=== PATIENT | male | born 1965 | race African-American/Black ===

== ENCOUNTER 2024-05-04 08:38 | Observation (INO) | payer MEDICAID, SELFPAY ==
--- NOTE | 2024-05-04 | CT_ITS ---
The [address] [address] Patient Name: IKE KILGORE MRN: [id number] date: 1965 Sex: M Assigned Patient Location: ED.MAIN Current Patient Location: Accession/Order Number: [id number] Exam Date: 05/04/2024 10:20 Report Date: 05/04/2024 11:43 At the request of: JAIME VARGAS Procedure: CT head/brain wo con EXAM: CT head/brain w con, CT head/brain wo con HISTORY: Headache, right eye pain COMPARISON: None. TECHNIQUE: Axial postcontrast CT imaging of the head was performed with coronal and sagittal reformats. FINDINGS: Calvarium/skull base: No evidence of acute fracture or destructive lesion. There is grossly unremarkable appearance of the partially visualized orbits. Paranasal sinuses: Subtotal ossification of the partially visualized right ethmoid air cells. Brain: No acute intracranial hemorrhage. No acute large vascular territory infarct. 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 No abnormal intracranial enhancement. No mass lesion or mass effect. No hydrocephalus. CT/CT head/brain wo con IMPRESSION: 1. No acute intracranial process. 2. Right ethmoid sinus disease. 3. Please note the orbits are incompletely evaluated on the current study. No overt abnormality involving the visualized portion of the orbits. 4. 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 Electronically authenticated by: RUTHIE CELESTIN Date: 05/04/2024 11:43
[2024-05-04 08:47] VITALS: BP 156/89; PULSE 76; TEMP 36.6; O2SAT 99; BMI 22.9
[2024-05-04 09:16] LABS: Basophils Absolute Auto 0.1 10^3/uL (0.0-0.1); Basophils Percent Auto 0.4 % (0.2-2.0); Eosinophils Absolute Auto 0.1 10^3/uL (0.0-0.7); Eosinophils Percent Auto 0.4 % (0.9-7.0); Hematocrit 47.6 % (42.0-54.0); Hemoglobin 15.8 g/dL (14.0-18.0); Immature Granulocytes Abs Auto 0.05 10^3/uL (0.00-0.03); Immature Granulocytes Pct Auto 0.4 % (0.0-0.5); Lymphocytes Absolute Auto 2.3 10^3/uL (1.2-3.8); Lymphocytes Percent Auto 16.5 % (20.5-60.0); Mean Corpuscular HGB Conc 33.2 g/dL (29.9-35.2); Mean Corpuscular Hemoglobin 29.3 pg (25.9-34.0); Mean Corpuscular Volume 88.1 fL (80.0-94.0); Mean Platelet Volume 9.7 fL (9.5-13.5); Monocytes Absolute Auto 0.9 10^3/uL (0.3-0.8); Monocytes Percent Auto 6.4 % (1.7-12.0); Neutrophils Absolute Auto 10.5 10^3/uL (1.4-6.5); Neutrophils Percent Auto 75.9 % (43.0-75.0); Platelet Count 381 10^3/uL (150-450); Red Cell Distribution Width 13.2 % (11.0-15.0); White Blood Count 13.9 10^3/uL (4.0-11.0)
[2024-05-04 09:17] LABS: Bilirubin Urine NEGATIVE (NEGATIVE); Blood Urine NEGATIVE (NEGATIVE); Clarity Urine CLEAR (CLEAR); Color Urine YELLOW (YELLOW); Glucose Urine UA >=1000 mg/dL (NEGATIVE); Ketones Urine TRACE mg/dL (NEGATIVE); Leukocyte Esterase Urine NEGATIVE (NEGATIVE); Nitrite Urine NEGATIVE (NEGATIVE); Protein Urine 100 mg/dL (NEG/TRACE); Specific Gravity Urine 1.025 (1.005-1.025); Urobilinogen Urine 0.2 EU/dL (0.2-1.0)
[2024-05-04 09:19] LABS: Urine Microscopic Indicated YES
[2024-05-04 09:25] LABS: Bacteria Urine TRACE #/HPF (NONE SEEN); Cast Seen? NONE SEEN #/LPF (NONE SEEN); Crystals Seen? None Seen #/HPF (None Seen); Mucus Urine SMALL (NONE SEEN); RBC Urine 0-2 #/HPF (0-2); Squamous Epithelial Cell Urine NONE SEEN #/LPF (NONE/RARE); Urine Culture Indicated NO; WBC Urine NONE SEEN #/HPF (NONE SEEN)
[2024-05-04 09:29] LABS: Alanine Aminotransferase 19 U/L (16-63); Albumin Globulin Ratio 0.7; Albumin Level 3.3 g/dL (3.4-5.0); Alkaline Phosphatase 122 U/L (46-116); Anion Gap 10.7; Aspartate Amino Transferase 7 U/L (15-37); BUN Creatinine Ratio 9.6; Bilirubin Total 0.2 mg/dL (0.2-1.0); Calcium 9.9 mg/dL (8.5-10.1); Carbon Dioxide 32.5 mmol/L (21.0-32.0); Chloride 92 mmol/L (98-107); Estimated GFR (African America >60 (>=60); Estimated GFR (Non-African Ame >60 (>=60); Globulin 4.5 g/dL; Glucose 81 mg/dL (74-106); Potassium 3.2 mmol/L (3.5-5.1); Sodium 132 mmol/L (136-145); Total Protein 7.8 g/dL (6.4-8.2)
--- NOTE | 2024-05-04 09:51 | XR_ITS ---
The [address] [address] Patient Name: IKE KILGORE MRN: [id number] date: 1965 Sex: M Assigned Patient Location: ED.MAIN Current Patient Location: ER Accession/Order Number: [id number] Exam Date: 05/04/2024 10:20 Report Date: 05/04/2024 11:17 At the request of: JAIME VARGAS Procedure: XR lumbar spine 2-3V EXAM: XR lumbar spine 2-3V HISTORY: Back pain. COMPARISON: None. TECHNIQUE: AP and lateral views of the lumbar spine performed. FINDINGS: The bony alignment and mineralization are normal. There is no fracture. The vertebral body heights are normal. There are mild discogenic degenerative changes at L3-4 with mild narrowing of the disc space, endplate sclerosis and endplate spurs. Small endplate spurs at L4-5 with preservation of the disc space height. The facet joints are unremarkable. The pedicles are intact. The sacrum and bilateral sacral joints are unremarkable. There is contrast within both renal collecting systems and the urinary bladder secondary to the antecedent CT examination of the head with intravenous contrast. XR/XR lumbar spine 2-3V IMPRESSION: There is no acute process. Mild discogenic degenerative changes at L3-4 and L4-5. Electronically authenticated by: ALEXIS SORENSON Date: 05/04/2024 11:17
--- NOTE | 2024-05-04 09:51 | CT_ITS ---
The [address] [address] Patient Name: IKE KILGORE MRN: [id number] date: 1965 Sex: M Assigned Patient Location: ED.MAIN Current Patient Location: Accession/Order Number: [id number] Exam Date: 05/04/2024 10:20 Report Date: 05/04/2024 11:43 At the request of: JAIME VARGAS Procedure: CT head/brain w con EXAM: CT head/brain w con, CT head/brain wo con HISTORY: Headache, right eye pain COMPARISON: None. TECHNIQUE: Axial postcontrast CT imaging of the head was performed with coronal and sagittal reformats. FINDINGS: Calvarium/skull base: No evidence of acute fracture or destructive lesion. There is grossly unremarkable appearance of the partially visualized orbits. Paranasal sinuses: Subtotal ossification of the partially visualized right ethmoid air cells. Brain: No acute intracranial hemorrhage. No acute large vascular territory infarct. 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 No abnormal intracranial enhancement. No mass lesion or mass effect. No hydrocephalus. CT/CT head/brain w con IMPRESSION: 1. No acute intracranial process. 2. Right ethmoid sinus disease. 3. Please note the orbits are incompletely evaluated on the current study. No overt abnormality involving the visualized portion of the orbits. 4. 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 Electronically authenticated by: RUTHIE CELESTIN Date: 05/04/2024 11:43
[2024-05-04] MEDS: DEXTROSE 5%-0.9% NACL 1,000 ML 1,000 ML 250 ML IV (09:52)
[2024-05-04 10:08] LABS: Glucometer 106 mg/dL (74-106)
[2024-05-04 10:08] LABS: C Reactive Protein 2.02 mg/dL (<=0.50)
[2024-05-04 10:10] LABS: Erythrocyte Sedimentation Rate 120 mm/hr (<=20)
[2024-05-04 10:58] LABS: Glucometer 134 mg/dL (74-106)
[2024-05-04 12:17] LABS: Glucometer 289 mg/dL (74-106)
[2024-05-04 12:18] VITALS: BP 144/75; PULSE 76; O2SAT 100
[2024-05-04 13:15] LABS: Lactate/Lactic Acid 3.1 mmol/L (0.4-2.0)
--- NOTE | 2024-05-04 13:18 | ED_ITS ---
HPI HPI - General Adult General Chief complaint: Back Pain/Injury Stated complaint: GENERAL WEAKNESS Time Seen by Provider: 05/04/24 09:51 Source: patient Mode of arrival: Wheelchair Limitations: no limitations History of Present Illness HPI narrative: This patient comes to us from the [facility]. He has been there several days for alcohol and crack cocaine use. His complaint today is pain in the right orbital area and low back pain. He denies any history of trauma falls or injury. He has not had any drugs or alcohol for a number of days. He is not known to be running a fever that he . He is here by himself. He does not have a skin infections that he is aware of. He denies any abdominal pain nausea or vomiting. He denies any chest pain or shortness of breath. He says he has had a lot of nasal stuffiness and congestion. He has not had any diarrhea or urinary symptoms such as frequency urgency dysuria or hematuria. Related Data Allergies Allergy/AdvReac Type Severity Reaction Status Date / Time No Known Drug Allergies Allergy Verified 05/04/24 08:47 Opioid HPI Opioid Management Most Recent Opioid Data: Last Pain Scale 8 05/04/24 09:11 PFSH PFSH Social History Little interest or pleasure in doing things: not at all Feeling down, depressed, or hopeless: not at all Exam Narrative Exam Narrative: Patient is awake alert afebrile follows all simple and complex commands but is somewhat of a limited historian. He did not mention to me anything about having a previous stroke, but as noted below his CT scan shows an old stroke today and then he subsequently remembered that he was told he had a stroke at [facility] a number of years ago. On HEENT examination the he has no proptosis. There is no conjunctivitis. Extraocular muscles are normal. There is no nystagmus. Conjunctiva is moist and pink. Pupillary light response is normal pupils are 5 mm and reactive bilaterally. The globes are not tender to palpation there is no increase in intracranial pressure. There is no proptosis as a noted. There is no facial asymmetry cranial nerves are normal. Oral cavity and dentition shows extremely poor repair and he does have some dental tenderness on the upper mid maxillary dental area. His airway is widely patent uvula is normal there is no swelling of the floor the mouth. Neck is soft and supple with no meningeal irritation no phono or photosensitivity cognition is normal. There is no nuchal rigidity. His lungs are clear with no wheeze rales or rhonchi heart sounds are normal with no murmur. Abdominal examination is not distended there is no guarding rebound or rigidity. Extremities showed no evidence of soft tissue or skin infection. His joints are not red hot warm swollen or tender. He has no cellulitis of the extremities. Constitutional Vital Signs, click to edit/add: Last Vital Signs Temp 97.9 F 05/04/24 08:47 Pulse 76 05/04/24 12:18 Resp 18 05/04/24 12:18 BP 144/75 H 05/04/24 12:18 Pulse Ox 100 05/04/24 12:18 O2 Del Method Room Air 05/04/24 08:47 Course Vital Signs Vital signs: Vital Signs Temperature 97.9 F 05/04/24 08:47 Pulse Rate 76 05/04/24 08:47 Respiratory Rate 18 05/04/24 08:47 Blood Pressure 156/89 H 05/04/24 08:47 Pulse Oximetry 99 05/04/24 08:47 Oxygen Delivery Method Room Air 05/04/24 08:47 Temperature 97.9 F 05/04/24 08:47 Pulse Rate 76 05/04/24 12:18 Respiratory Rate 18 05/04/24 12:18 Blood Pressure 144/75 H 05/04/24 12:18 Pulse Oximetry 100 05/04/24 12:18 Oxygen Delivery Method Room Air 05/04/24 08:47 Medical Decision Making [facility] Narrative Medical decision making narrative: This patient denies any previous recent or past history of intravenous drug abuse states that he only uses alcohol and snorts crack cocaine. He has substantial elevation of sedimentation rate and CRP. He has pain in the right orbital area. CT scan without and with contrast shows ethmoid sinus problem. He has an old stroke on the right side with no acute findings. His white blood cell count is modestly elevated as well. We do not have a clear-cut obvious sign of infection but the ethmoid sinuses and dentition are likely. Blood cultures have been done and the sedimentation rate was discussed as above. His lactate levels are also elevated. We will start him on Rocephin. I will speak to the hospitalist about admitting him for pending blood cultures. Lab Data Labs: Lab Results 05/04/24 05/04/24 05/04/24 Range/Units 09:02 09:05 10:05 WBC 13.9 H (4.0-11.0) 10^3/uL RBC 5.40 (4.70-6.10) 10^6/uL Hgb 15.8 (14.0-18.0) g/dL Hct 47.6 (42.0-54.0) % MCV 88.1 (80.0-94.0) fL MCH 29.3 (25.9-34.0) pg MCHC 33.2 (29.9-35.2) g/dL RDW 13.2 (11.0-15.0) % Plt Count 381 (150-450) 10^3/uL MPV 9.7 (9.5-13.5) fL Neut % (Auto) 75.9 H (43.0-75.0) % Lymph % (Auto) 16.5 L (20.5-60.0) % Wilkin % (Auto) 6.4 (1.7-12.0) % Eos % (Auto) 0.4 L (0.9-7.0) % Baso % (Auto) 0.4 (0.2-2.0) % Neut # (Auto) 10.5 H (1.4-6.5) 10^3/uL Lymph # (Auto) 2.3 (1.2-3.8) 10^3/uL Wilkin # (Auto) 0.9 H (0.3-0.8) 10^3/uL Eos # (Auto) 0.1 (0.0-0.7) 10^3/uL Baso # (Auto) 0.1 (0.0-0.1) 10^3/uL Abs Immat Gran (auto) 0.05 H (0.00-0.03) 10^3/uL Imm/Tot Granulo (auto) 0.4 (0.0-0.5) % ESR 120 H (<=20) mm/hr Sodium 132 L (136-145) mmol/L Potassium 3.2 L (3.5-5.1) mmol/L Chloride 92 L (98-107) mmol/L Carbon Dioxide 32.5 H (21.0-32.0) mmol/L Anion Gap 10.7 BUN 10.0 (7.0-18.0) mg/dL Creatinine 1.04 (0.70-1.30) mg/dL Est GFR ( Amer) >60 (>=60) Est GFR (Non-Af Amer) >60 (>=60) BUN/Creatinine Ratio 9.6 Glucose 81 (74-106) mg/dL Lactate 3.1 H* (0.4-2.0) mmol/L Calcium 9.9 (8.5-10.1) mg/dL Total Bilirubin 0.2 (0.2-1.0) mg/dL AST 7 L (15-37) U/L ALT 19 (16-63) U/L Alkaline Phosphatase 122 H (46-116) U/L C-Reactive Protein 2.02 H (<=0.50) mg/dL Total Protein 7.8 (6.4-8.2) g/dL Albumin 3.3 L (3.4-5.0) g/dL Globulin 4.5 g/dL Albumin/Globulin Ratio 0.7 Urine Color Yellow (YELLOW) Urine Clarity Clear (CLEAR) Urine pH 6.0 (5.0-9.0) Ur Specific [place] 1.025 (1.005-1.025) Urine Protein 100 A (NEG/TRACE) mg/dL Urine Glucose (UA) >=1000 A (NEGATIVE) mg/dL Urine Ketones Trace A (NEGATIVE) mg/dL Urine Occult Blood Negative (NEGATIVE) Urine Nitrite Negative (NEGATIVE) Urine Bilirubin Negative (NEGATIVE) Urine Urobilinogen 0.2 (0.2-1.0) EU/dL Ur Leukocyte Esterase Negative (NEGATIVE) Urine RBC 0-2 (0-2) #/HPF Urine WBC None seen (NONE SEEN) #/HPF Ur Squamous Epith Cells None seen (NONE/RARE) #/LPF Urine Crystals None seen (None Seen) #/HPF Urine Bacteria Trace A (NONE SEEN) #/HPF Urine Casts None seen (NONE SEEN) #/LPF Urine Mucus Small A (NONE SEEN) Ur Culture Indicated? No POC Glucose 106 (74-106) mg/dL 05/04/24 05/04/24 Range/Units 10:54 12:16 WBC (4.0-11.0) 10^3/uL RBC (4.70-6.10) 10^6/uL Hgb (14.0-18.0) g/dL Hct (42.0-54.0) % MCV (80.0-94.0) fL MCH (25.9-34.0) pg MCHC (29.9-35.2) g/dL RDW (11.0-15.0) % Plt Count (150-450) 10^3/uL MPV (9.5-13.5) fL Neut % (Auto) (43.0-75.0) % Lymph % (Auto) (20.5-60.0) % Wilkin % (Auto) (1.7-12.0) % Eos % (Auto) (0.9-7.0) % Baso % (Auto) (0.2-2.0) % Neut # (Auto) (1.4-6.5) 10^3/uL Lymph # (Auto) (1.2-3.8) 10^3/uL Wilkin # (Auto) (0.3-0.8) 10^3/uL Eos # (Auto) (0.0-0.7) 10^3/uL Baso # (Auto) (0.0-0.1) 10^3/uL Abs Immat Gran (auto) (0.00-0.03) 10^3/uL Imm/Tot Granulo (auto) (0.0-0.5) % ESR (<=20) mm/hr Sodium (136-145) mmol/L Potassium (3.5-5.1) mmol/L Chloride (98-107) mmol/L Carbon Dioxide (21.0-32.0) mmol/L Anion Gap BUN (7.0-18.0) mg/dL Creatinine (0.70-1.30) mg/dL Est GFR ( Amer) (>=60) Est GFR (Non-Af Amer) (>=60) BUN/Creatinine Ratio Glucose (74-106) mg/dL Lactate (0.4-2.0) mmol/L Calcium (8.5-10.1) mg/dL Total Bilirubin (0.2-1.0) mg/dL AST (15-37) U/L ALT (16-63) U/L Alkaline Phosphatase (46-116) U/L C-Reactive Protein (<=0.50) mg/dL Total Protein (6.4-8.2) g/dL Albumin (3.4-5.0) g/dL Globulin g/dL Albumin/Globulin Ratio Urine Color (YELLOW) Urine Clarity (CLEAR) Urine pH (5.0-9.0) Ur Specific [place] (1.005-1.025) Urine Protein (NEG/TRACE) mg/dL Urine Glucose (UA) (NEGATIVE) mg/dL Urine Ketones (NEGATIVE) mg/dL Urine Occult Blood (NEGATIVE) Urine Nitrite (NEGATIVE) Urine Bilirubin (NEGATIVE) Urine Urobilinogen (0.2-1.0) EU/dL Ur Leukocyte Esterase (NEGATIVE) Urine RBC (0-2) #/HPF Urine WBC (NONE SEEN) #/HPF Ur Squamous Epith Cells (NONE/RARE) #/LPF Urine Crystals (None Seen) #/HPF Urine Bacteria (NONE SEEN) #/HPF Urine Casts (NONE SEEN) #/LPF Urine Mucus (NONE SEEN) Ur Culture Indicated? POC Glucose 134 H 289 H (74-106) mg/dL Discharge Plan Discharge Chief Complaint: Back Pain/Injury Clinical Impression: Sinusitis, Chronic dental infection Patient Disposition: Admitted as Observation Time of Disposition Decision: 13:22 Print Language: Indonesian Referrals: Physician,Non-Staff, [Primary Care Provider] - 1 week
[2024-05-04] MEDS: CEFTRIAXONE 1,000 MG in 0.9 % SODIUM CHLORIDE 50 ML 100 MG IV (13:29)
[2024-05-04 13:38] LABS: Lactate/Lactic Acid 1.1 mmol/L (0.4-2.0)
--- NOTE | 2024-05-04 14:04 | P.HP_ITS ---
HPI H&P: HPI History of Present Illness Chief complaint: SINUSITIS, CHRONIC DENTAL INFECTION Narrative: Patient is a 58 year old black male with past medical history of insulin dependent type 2 diabetes, drug dependence on crack cocaine, alcoholism who presented to the ER today with right eye pain and low back pain. Apparently he was taking metformin and glipizide in the past but recently was switched to insulin. He was homeless in [place] sleeping on the streets and doing drugs an d drinking by day. He came to the [facility] recovery program in [place] which is why he ended up in the ER here today. 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 Initial lactate was 3.0 and on repeat was 1.1. ESR 120, CRP 2.02; Patient was given IV rocephin. At the time of admission, he admits to poor dentition/dental caries, right sided face pain and eye pain, denies any blurriness of vision. No n/v/d. Opioid HPI Opioid Management Most Recent Pain and Opioid Data: Last Pain Scale 8 05/04/24 09:11 Review of Systems ROS Narrative ROS: a complete review of systems were reviewed with patient and are positive as below or listed in History of Chief Complaint. General: no fever, chills, night sweats Head: headache, no trauma, visual changes, nausea or vomiting Skin: no reported rashes, itching or sores Eyes: no blurriness of vision Ears: no reported hearing loss, vertigo, earache, or tinnitus Throat: no sore throat, hoarseness, swelling of neck, or tongue pain Heart: no chest pain Lungs: no shortness of breath or cough GI: no diarrhea or vomiting/nausea Urinary: no urinary urgency, frequency or pain Neuro: no numbness or tingling HEM: no bleeding issues or bruising ENDO: no thyroid problems Psych: no anxiety or depression [facility] Medical History (Updated 05/04/24 @ 15:26 by Beckie Michel DO) Insulin dependent type 2 diabetes mellitus, uncontrolled Cocaine abuse ?F14.10 - Cocaine abuse, uncomplicated (ICD-10) Alcoholism ?F10.20 - Alcohol dependence, uncomplicated (ICD-10) Social History (Reviewed 09/14/24 @ 15:22 by YASMINE Bedoya Little interest or pleasure in doing things: not at all Feeling down, depressed, or hopeless: not at all Meds Home Medications and Allergies Home Medications ?Medication ?Instructions ?Recorded ?Confirmed ?Type insulin glargine 100 unit/mL (3 20 unit subcut DAILY 05/04/24 05/04/24 History mL) subcutaneous pen (Lantus Solostar U-100 Insulin) insulin lispro 100 unit/mL 1 sliding scale dose subcut QID 05/04/24 05/04/24 History subcutaneous pen (Humalog KwikPen (U-100) Insulin) Allergies Allergy/AdvReac Type Severity Reaction Status Date / Time No Known Drug Allergies Allergy Verified 05/04/24 08:47 Exam Narrative Exam Narrative: General: Patient is alert, and oriented to person, place and time with normal affect, proper hygiene Skin: no visible rashes, or ulcers Head: atraumatic, acephalic Eyes: PERRLA, no nystagmus present, conjunctiva clear, no scleral icterus Ears: normal Tympanic Membrane, normal gross auditory acuity Nose: symmetric, no discharge, right maxillary and frontal sinus tenderness Mouth/Throat: no erythema, exudate, or tonsillar enlargement, poor dentition Neck: no masses palpated, normal thyroid, no JVD or audible carotid bruits Heart: Normal rate and rhythm, no murmurs/rubs/gallops Lungs: no audible wheezes, crackles and normal breath sounds all lung maier Abdomen: Normal audible bowel sounds, no distension, No palpable masses, no organomegaly, no rebound/guarding/ or rigidity Musculoskeletal: no swelling bilateral lower extremities Neuro: CN II-X grossly intact Constitutional Vital Signs, click to edit/add: Last Vital Signs Temp 97.9 F 05/04/24 08:47 Pulse 76 05/04/24 12:18 Resp 18 05/04/24 12:18 BP 144/75 H 05/04/24 12:18 Pulse Ox 100 05/04/24 12:18 O2 Del Method Room Air 05/04/24 08:47 Results Labs Labs: Short CBC 05/04/24 Range/Units 09:05 WBC 13.9 H (4.0-11.0) 10^3/uL Hgb 15.8 (14.0-18.0) g/dL Hct 47.6 (42.0-54.0) % Plt Count 381 (150-450) 10^3/uL BMP 05/04/24 09:05 Sodium 132 L Potassium 3.2 L Chloride 92 L Carbon Dioxide 32.5 H BUN 10.0 Creatinine 1.04 Glucose 81 Calcium 9.9 Liver Function 05/04/24 Range/Units 09:05 Total Bilirubin 0.2 (0.2-1.0) mg/dL AST 7 L (15-37) U/L ALT 19 (16-63) U/L Alkaline Phosphatase 122 H (46-116) U/L Albumin 3.3 L (3.4-5.0) g/dL Urine 05/04/24 Range/Units 09:02 Urine Color Yellow (YELLOW) Urine Clarity Clear (CLEAR) Urine pH 6.0 (5.0-9.0) Ur Specific [place] 1.025 (1.005-1.025) Urine Protein 100 A (NEG/TRACE) mg/dL Urine Glucose (UA) >=1000 A (NEGATIVE) mg/dL Assessment and Plan Assessment and Plan (1) Ethmoid sinusitis: Assessment and Plan: will place patient on IV rocephin, recheck labs in the morning. Most likely discharge back to the [facility] tomorrow. CT showed ethmoid sinusitis. Qualifiers: Chronicity: acute Recurrence: non-recurrent Qualified Code(s): J01.20 - Acute ethmoidal sinusitis, unspecified (2) Chronic dental infection: Assessment and Plan: continue with rocephin (3) Alcoholism: Assessment and Plan: no withdrawal. will return to [facility] on discharge. (4) Cocaine abuse: Assessment and Plan: monitor, (5) Insulin dependent type 2 diabetes mellitus, uncontrolled: Assessment and Plan: SSI and accuchecks Plan Patient is a full code Lovenox for dvt prophylaxis Patient is in observation and expected discharge back to [facility] tomorrow
[2024-05-04 14:39] VITALS: O2SAT 99
[2024-05-04 14:48] VITALS: BP 156/90; PULSE 77; TEMP 36.7; O2SAT 98; BMI 21.9
[2024-05-04] MEDS: LACTATED RINGER'S SOLUTION 1,000 ML 125 ML IV (16:11)
[2024-05-04] MEDS: ENOXAPARIN SODIUM 40 MG/0.4 ML SYRINGE SUBQ (16:11)
[2024-05-04] MEDS: METHYLPREDNISOLONE SOD SUCC PF 40 MG/ML VIAL IVP ×2 (16:11→22:03)
[2024-05-04 16:19] LABS: Glucometer 333 mg/dL (74-106)
[2024-05-04] MEDS: INSULIN ASPART 300 UNIT/3 ML PEN SUBQ ×2 (16:20→21:58)
[2024-05-04] MEDS: POTASSIUM CHLORIDE 10 MEQ ER TABLET 40 MEQ PO (16:55)
[2024-05-04 20:00] VITALS: BP 134/69; PULSE 95; TEMP 36.1; O2SAT 100
[2024-05-04 21:30] LABS: Anion Gap 13.7; BUN Creatinine Ratio 9.8; Calcium 9.1 mg/dL (8.5-10.1); Carbon Dioxide 29.2 mmol/L (21.0-32.0); Chloride 93 mmol/L (98-107); Estimated GFR (African America >60 (>=60); Estimated GFR (Non-African Ame 51 (>=60); Potassium 4.9 mmol/L (3.5-5.1); Sodium 131 mmol/L (136-145)
[2024-05-04 21:35] LABS: Glucose 697 mg/dL (74-106)
[2024-05-04] MEDS: INSULIN REGULAR, HUMAN (100 UNIT/ML) 10 ML MDV 10 UNIT IV (21:57)
[2024-05-04 23:57] VITALS: BP 151/81; PULSE 97; TEMP 36.7; O2SAT 99
[2024-05-05 01:04] LABS: Anion Gap 9.4; BUN Creatinine Ratio 13.3; Calcium 9.3 mg/dL (8.5-10.1); Carbon Dioxide 31.4 mmol/L (21.0-32.0); Chloride 91 mmol/L (98-107); Estimated GFR (African America >60 (>=60); Estimated GFR (Non-African Ame 51 (>=60); Potassium 4.8 mmol/L (3.5-5.1); Sodium 127 mmol/L (136-145)
[2024-05-05 01:11] LABS: Glucose 680 mg/dL (74-106)
[2024-05-05] MEDS: LACTATED RINGER'S SOLUTION 1,000 ML 125 ML IV (01:14)
[2024-05-05] MEDS: INSULIN ASPART 300 UNIT/3 ML PEN SUBQ ×3 (02:04→08:21)
[2024-05-05] MEDS: INSULIN REGULAR, HUMAN (100 UNIT/ML) 10 ML MDV 10 UNIT IV ×2 (02:04→05:08)
[2024-05-05 04:00] VITALS: BP 146/73; PULSE 87; TEMP 36.6; O2SAT 96
[2024-05-05 04:53] LABS: Glucose 598 mg/dL (74-106)
[2024-05-05 06:14] LABS: Basophils Percent Auto 0.1 % (0.2-2.0); Hemoglobin 14.4 g/dL (14.0-18.0); Immature Granulocytes Abs Auto 0.04 10^3/uL (0.00-0.03); Immature Granulocytes Pct Auto 0.4 % (0.0-0.5); Lymphocytes Absolute Auto 0.9 10^3/uL (1.2-3.8); Lymphocytes Percent Auto 8.1 % (20.5-60.0); Mean Corpuscular HGB Conc 33.5 g/dL (29.9-35.2); Mean Corpuscular Hemoglobin 29.4 pg (25.9-34.0); Mean Corpuscular Volume 87.8 fL (80.0-94.0); Mean Platelet Volume 10.2 fL (9.5-13.5); Monocytes Absolute Auto 0.4 10^3/uL (0.3-0.8); Monocytes Percent Auto 3.9 % (1.7-12.0); Neutrophils Percent Auto 87.5 % (43.0-75.0); Platelet Count 325 10^3/uL (150-450); White Blood Count 11.4 10^3/uL (4.0-11.0)
[2024-05-05 06:27] LABS: Anion Gap 12.5; BUN Creatinine Ratio 17.2; Calcium 9.3 mg/dL (8.5-10.1); Carbon Dioxide 26.9 mmol/L (21.0-32.0); Chloride 95 mmol/L (98-107); Estimated GFR (African America >60 (>=60); Estimated GFR (Non-African Ame >60 (>=60); Glucose 420 mg/dL (74-106); Potassium 4.4 mmol/L (3.5-5.1); Sodium 130 mmol/L (136-145)
[2024-05-05 06:29] LABS: Glucometer 369 mg/dL (74-106)
--- NOTE | 2024-05-05 07:37 | P.DS_ITS ---
DS: Providers Provider Date of admission: 05/04/24 14:24 Primary care physician: Non-Staff Physician, Admitting clinician: Beckie Michel Discharging clinician: Beckie Michel DS: Diagnosis Discharge Diagnosis (1) Ethmoid sinusitis: Qualifiers: Chronicity: acute Recurrence: non-recurrent Qualified Code(s): J01.20 - Acute ethmoidal sinusitis, unspecified (2) Chronic dental infection: (3) Alcoholism: (4) Cocaine abuse: (5) Insulin dependent type 2 diabetes mellitus, uncontrolled: DS: Summary Hospital Course Hospital Course: Patient is a 58 year old black male with past medical history of insulin dependent type 2 diabetes, drug dependence on crack cocaine, alcoholism who presented to the ER today with right eye pain and low back pain. Apparently he was taking metformin and glipizide in the past but recently was switched to insulin. He was homeless in [place] sleeping on the streets and doing drugs and drinking by day. He came to the [facility] drug recovery program in [place] which is why he ended up in the ER here. 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 Initial lactate was 3.0 and on repeat was 1.1. ESR 120, CRP 2.02; Patient was given IV rocephin. At the time of admission, he admits to poor dentition/dental caries, right sided face pain and eye pain, denies any blurriness of vision. No n/v/d. Overnight patient did well. Sugars were elevated secondary to IV steroids, those were discontinued this morning. He has done well on Rocephin. I will discharge him on Augmentin 875/125 BID x 7 days. He was given a printed prescription. He will resume Lantus 20units and SSI with meals. He will be discharged back to the [facility] rehab center today. WBC's 11.4 at the time of discharge. Status at Discharge Functional status at discharge: independent ambulation Overall status at discharge: patient is back to baseline Time Spent with Patient Time attestation: Total time spent providing and/or coordinating discharge services: Time spent: greater than 30 minutes Exam Narrative Exam Narrative: General: Patient is alert, and oriented to person, place and time with normal affect Skin: some chronic appearing sores on the hands Head: atraumatic, acephalic Eyes: PERRLA, no nystagmus present, conjunctiva clear, no scleral icterus Ears: normal Tympanic Membrane, normal gross auditory acuity Nose: symmetric, no discharge, no right maxillary and frontal sinus tenderness Mouth/Throat: no erythema, exudate, or tonsillar enlargement, poor dentition Neck: no masses palpated, normal thyroid, no JVD or audible carotid bruits Heart: Normal rate and rhythm, no murmurs/rubs/gallops Lungs: no audible wheezes, crackles and normal breath sounds all lung maier Abdomen: Normal audible bowel sounds, no distension, No palpable masses, no organomegaly, no rebound/guarding/ or rigidity Musculoskeletal: no swelling bilateral lower extremities, long thickened toenails Neuro: CN II-X grossly intact Constitutional Vital Signs, click to edit/add: Last Vital Signs Temp 98 F 05/05/24 04:00 Pulse 87 05/05/24 04:00 Resp 17 05/05/24 04:00 BP 146/73 H 05/05/24 04:00 Pulse Ox 96 05/05/24 04:00 O2 Del Method Room Air 05/04/24 23:57 DS: Data Data Completed and Pending Labs on day of discharge: Labs from last 24 hours 05/05/24 05/05/24 05/05/24 06:20 06:04 04:20 WBC 11.4 H RBC 4.90 Hgb 14.4 Hct 43.0 MCV 87.8 MCH 29.4 MCHC 33.5 RDW 13.0 Plt Count 325 MPV 10.2 Neut % (Auto) 87.5 H Lymph % (Auto) 8.1 L [place] % (Auto) 3.9 Eos % (Auto) 0.0 L Baso % (Auto) 0.1 L Neut # (Auto) 10.0 H Lymph # (Auto) 0.9 L [place] # (Auto) 0.4 Eos # (Auto) 0.0 Baso # (Auto) 0.0 Abs Immat Gran (auto) 0.04 H Imm/Tot Granulo (auto) 0.4 ESR Sodium 130 L Potassium 4.4 Chloride 95 L Carbon Dioxide 26.9 Anion Gap 12.5 BUN 20.0 H Creatinine 1.16 Est GFR ( Amer) >60 Est GFR (Non-Af Amer) >60 BUN/Creatinine Ratio 17.2 Glucose 420 H 598 H* Lactate Calcium 9.3 Total Bilirubin AST ALT Alkaline Phosphatase C-Reactive Protein Total Protein Albumin Globulin Albumin/Globulin Ratio Urine Color Urine Clarity Urine pH Ur Specific [place] Urine Protein Urine Glucose (UA) Urine Ketones Urine Occult Blood Urine Nitrite Urine Bilirubin Urine Urobilinogen Ur Leukocyte Esterase Urine RBC Urine WBC Ur Squamous Epith Cells Urine Crystals Urine Bacteria Urine Casts Urine Mucus Ur Culture Indicated? POC Glucose 369 H 05/05/24 05/04/24 05/04/24 00:29 20:57 16:17 WBC RBC Hgb Hct MCV MCH MCHC RDW Plt Count MPV Neut % (Auto) Lymph % (Auto) [place] % (Auto) Eos % (Auto) Baso % (Auto) Neut # (Auto) Lymph # (Auto) [place] # (Auto) Eos # (Auto) Baso # (Auto) Abs Immat Gran (auto) Imm/Tot Granulo (auto) ESR Sodium 127 L 131 L Potassium 4.8 4.9 Chloride 91 L 93 L Carbon Dioxide 31.4 29.2 Anion Gap 9.4 13.7 BUN 19.0 H 14.0 Creatinine 1.43 H 1.43 H Est GFR ( Amer) >60 >60 Est GFR (Non-Af Amer) 51 L 51 L BUN/Creatinine Ratio 13.3 9.8 Glucose 680 H* 697 H* Lactate Calcium 9.3 9.1 Total Bilirubin AST ALT Alkaline Phosphatase C-Reactive Protein Total Protein Albumin Globulin Albumin/Globulin Ratio Urine Color Urine Clarity Urine pH Ur Specific [place] Urine Protein Urine Glucose (UA) Urine Ketones Urine Occult Blood Urine Nitrite Urine Bilirubin Urine Urobilinogen Ur Leukocyte Esterase Urine RBC Urine WBC Ur Squamous Epith Cells Urine Crystals Urine Bacteria Urine Casts Urine Mucus Ur Culture Indicated? POC Glucose 333 H 05/04/24 05/04/24 05/04/24 13:13 12:16 10:54 WBC RBC Hgb Hct MCV MCH MCHC RDW Plt Count MPV Neut % (Auto) Lymph % (Auto) [place] % (Auto) Eos % (Auto) Baso % (Auto) Neut # (Auto) Lymph # (Auto) [place] # (Auto) Eos # (Auto) Baso # (Auto) Abs Immat Gran (auto) Imm/Tot Granulo (auto) ESR Sodium Potassium Chloride Carbon Dioxide Anion Gap BUN Creatinine Est GFR ( Amer) Est GFR (Non-Af Amer) BUN/Creatinine Ratio Glucose Lactate 1.1 Calcium Total Bilirubin AST ALT Alkaline Phosphatase C-Reactive Protein Total Protein Albumin Globulin Albumin/Globulin Ratio Urine Color Urine Clarity Urine pH Ur Specific [place] Urine Protein Urine Glucose (UA) Urine Ketones Urine Occult Blood Urine Nitrite Urine Bilirubin Urine Urobilinogen Ur Leukocyte Esterase Urine RBC Urine WBC Ur Squamous Epith Cells Urine Crystals Urine Bacteria Urine Casts Urine Mucus Ur Culture Indicated? POC Glucose 289 H 134 H 05/04/24 05/04/24 05/04/24 10:05 09:05 09:02 WBC 13.9 H RBC 5.40 Hgb 15.8 Hct 47.6 MCV 88.1 MCH 29.3 MCHC 33.2 RDW 13.2 Plt Count 381 MPV 9.7 Neut % (Auto) 75.9 H Lymph % (Auto) 16.5 L [place] % (Auto) 6.4 Eos % (Auto) 0.4 L Baso % (Auto) 0.4 Neut # (Auto) 10.5 H Lymph # (Auto) 2.3 [place] # (Auto) 0.9 H Eos # (Auto) 0.1 Baso # (Auto) 0.1 Abs Immat Gran (auto) 0.05 H Imm/Tot Granulo (auto) 0.4 ESR 120 H Sodium 132 L Potassium 3.2 L Chloride 92 L Carbon Dioxide 32.5 H Anion Gap 10.7 BUN 10.0 Creatinine 1.04 Est GFR ( Amer) >60 Est GFR (Non-Af Amer) >60 BUN/Creatinine Ratio 9.6 Glucose 81 Lactate 3.1 H* Calcium 9.9 Total Bilirubin 0.2 AST 7 L ALT 19 Alkaline Phosphatase 122 H C-Reactive Protein 2.02 H Total Protein 7.8 Albumin 3.3 L Globulin 4.5 Albumin/Globulin Ratio 0.7 Urine Color Yellow Urine Clarity Clear Urine pH 6.0 Ur Specific [place] 1.025 Urine Protein 100 A Urine Glucose (UA) >=1000 A Urine Ketones Trace A Urine Occult Blood Negative Urine Nitrite Negative Urine Bilirubin Negative Urine Urobilinogen 0.2 Ur Leukocyte Esterase Negative Urine RBC 0-2 Urine WBC None seen Ur Squamous Epith Cells None seen Urine Crystals None seen Urine Bacteria Trace A Urine Casts None seen Urine Mucus Small A Ur Culture Indicated? No POC Glucose 106 Discharge Plan Discharge Disposition: Home, Self-Care Discharge Medications: New amoxicillin-pot clavulanate 875-125 mg tablet 1 tab PO Q12H 7 Days Qty: 14 0RF Continued insulin glargine [Lantus Solostar U-100 Insulin] 100 unit/mL (3 mL) insulin pen 20 unit SUBCUT DAILY insulin lispro [Humalog KwikPen Insulin] 100 unit/mL insulin pen 1 sliding scale dose SUBCUT QID Activity: increase activity as tolerated Diet: diabetic diet Print Language: Nicarag[place] Patient Instructions: Sinusitis (ED) Forms: Portal Instructions Follow Up Appointments: Patient returning to [facility] rehab facility
[2024-05-05 07:59] LABS: Glucometer 328 mg/dL (74-106)
[2024-05-05] MEDS: INSULIN DETEMIR 300 UNIT/3 ML INSULN.PEN 20 UNIT SUBQ (08:21)
[2024-05-05 08:27] VITALS: BP 144/85; PULSE 82; TEMP 36.6; O2SAT 96
--- NOTE | 2024-05-05 10:32 | PC.NURSE ---
[employer] called [facility] and spoke with nurse Anny. She is aware of discharge and will set up transport. She will call back with ETA
--- NOTE | 2024-05-05 10:42 | PC.NURSE ---
Tech from [facility] called and is on the way to get patient.
--- NOTE | 2024-05-06 10:34 | CM.DCFOLLOWU ---
Incorrect number listed
== END 2024-05-05 10:57 | disposition home or self-care (01) ==
LOC: ER 13:23 → MS 14:32
PROVIDERS: Registered Nurse; Admitting Provider Family Medicine; Emergency Provider Emergency Medicine Emergency Medical Services; Visit Provider Family Medicine
DX: J01.20 Acute ethmoidal sinusitis, unspecified (principal); K04.7 Periapical abscess without sinus; F10.20 Alcohol dependence, uncomplicated; F14.20 Cocaine dependence, uncomplicated; E11.65 Type 2 diabetes mellitus with hyperglycemia; Z79.4 Long term (current) use of insulin; M47.816 Spondylosis without myelopathy or radiculopathy, lumbar region; Z59.02 Unsheltered homelessness
CPT/HCPCS: 36415; 70450; 70460; 72100; 80048; 80053; 81001; 82947; 82948; 83605; 85025; 85652; 86140; 87040; 96365; 96372; 96375; 96376; 99285; G0378; J0696; J1650; J1817; J2919; Q9967